=== PATIENT | male | born 1985 | race Caucasian/White ===

== ENCOUNTER 2016-10-14 10:18 | Emergency (ER) | payer OTHER ==
[2016-10-14] MEDS ORDERED: Sodium Chloride 0.9% 10 ML Syringe FLUSH PRN ×2 (11:43→12:53)
[2016-10-14] MEDS ORDERED: Sodium Chloride 0.9% 1,000 ML IV SCH (11:45)
--- NOTE | 2016-10-14 11:47 | EDM.PDOC ---
ED HPI GENERAL MEDICAL PROBLEM - General Chief Complaint: Abdominal Pain Stated Complaint: ABDOMINAL PAIN Time Seen by Provider: 10/14/16 11:12 Source of Information: Reports: Patient History Limitations: Reports: No Limitations - History of Present Illness INITIAL COMMENTS - FREE TEXT/NARRATIVE: Patient is a 31 year old male who presents to the E.D. complaining of left lower inguinal pain. Patient states he has history of bilateral open inguinal repair approximately 15+. 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 States he heard a pop and has noticed pain to the left inguinal region along incision and that his left testicle is hanging lower. Pain to abdomen is mild in nature. States he has minimal to no pain to left testicle. This occurred this past . Denies dysuria, hematuria, n/v, fever, or any additional complaints. Onset: Sudden Duration: Constant, Waxing/Waning Location: Reports: Other (left inguinal) Quality: Reports: Ache Severity: Mild Improves with: Reports: None Worsens with: Reports: Other (palpation) Context: Reports: Activity Associated Symptoms: Reports: No Other Symptoms Treatments [employer]: Reports: Other (see below) (none stated) Lower Abdomen Pain Score (Numeric/FACES): 2 - Related Data Allergies Allergy/AdvReac Type Severity Reaction Status Date / Time No Known Allergies Allergy Verified 10/14/16 11:07 Home Meds: Home Meds . [No Known Home Meds] 10/14/16 [History] Past Medical History - Past Health History Medical/Surgical History: Denies Medical/Surgical History - Past Surgical History GI Surgical History: Reports: Hernia Repair/Other Social & Family History - Tobacco Use Smoking Status *Q: Current Every Day Smoker Years of Tobacco use: 15 Packs/Tins Daily: 0.5 Used Tobacco, but Quit: No Month Tobacco Last Used: November Second Hand Smoke Exposure: No - Caffeine Use Caffeine Use: Reports: Soda - Alcohol Use Days Per Week of Alcohol Use: 0 Number of Drinks Per Day: 1 Total Drinks Per Week: 0 - Recreational Drug Use Recreational Drug Use: No ED ROS GENERAL - Review of Systems Review Of Systems: See Below Constitutional: Reports: No Symptoms Respiratory: Reports: No Symptoms Cardiovascular: Reports: No Symptoms GI/Abdominal: Reports: Abdominal Pain (left inguinal region). Denies: Black Stool, Bloody Stool, Decreased Appetite, Hematemesis, Melena, Nausea, Vomiting : Denies: Dysuria, Flank Pain, Frequency, Hematuria, Urinary Retention Musculoskeletal: Reports: No Symptoms ED EXAM, RENAL/ - Physical Exam Exam: See Below Exam Limited By: No Limitations General Appearance: Alert, WD/WN, No Apparent Distress Eye Exam: Bilateral Eye: PERRL Ears: Hearing Grossly Normal Nose: Normal Inspection Throat/Mouth: Normal Voice, No Airway Compromise Neck: Normal Inspection, Supple Respiratory/Chest: No Respiratory Distress, Lungs Clear, Normal Breath Sounds Cardiovascular: Normal Peripheral Pulses, Regular Rate, Rhythm, No Murmur GI/Abdominal: Normal Bowel Sounds, Soft, No Organomegaly, No Distention, Tender (mild tenderness in the left inguinal region. surgical incisions to the inguinal region bilaterally status post open hernia repair with mesh. No direct hernia present bilaterally) (Male) Exam: No Hernia, Circumcised, Other (left testicle pain approximately 1.5 inches lower than the right.). No: Cremasteric Reflex (bilaterally), Scrotal Swelling, Scrotum Tenderness (L), Scrotum Tenderness (R), Suprapubic Fullness, Testicular Mass, Testicular Tenderness (L), Testicular Tenderness (R) Rectal (Males) Exam: Deferred Back Exam: Normal Inspection Neurological: Alert, Oriented, Normal Cognition, No Motor/Sensory Deficits Psychiatric: Normal Affect, Normal Mood Skin Exam: Warm, Dry, Intact, Normal Color Course - Vital Signs Last Recorded V/S: Last Vital Signs Temp 97.7 F 10/14/16 11:03 Pulse 84 10/14/16 15:27 Resp 18 10/14/16 15:27 BP 130/82 10/14/16 15:27 Pulse Ox 98 10/14/16 15:27 - Orders/Labs/Meds Orders: Active Orders 24 hr Category Date Time Status Peripheral IV Care [RC] . DIRECTED Care 10/14/16 11:43 Active Abdomen Pelvis w Cont [CT] Stat Exams 10/14/16 11:42 Taken Peripheral IV Insertion Adult [OM.PC] Stat Oth 10/14/16 11:43 Ordered Labs: Laboratory Tests 10/14/16 10/14/16 10/14/16 Range/Units 11:15 11:15 13:20 WBC 6.17 (4.23-9.07) K/mm3 RBC 5.92 (4.63-6.08) M/mm3 Hgb 16.7 (13.7-17.5) gm/L Hct 47.5 (40.1-51.0) % MCV 80.2 (79.0-92.2) fl MCH 28.2 (25.7-32.2) pg MCHC 35.2 (32.2-35.5) g/dl RDW Std Deviation 42.7 (35.1-43.9) fL Plt Count 310 (163-337) K/mm3 MPV 10.7 (9.4-12.3) fl Neut % (Auto) 54.6 (34.0-67.9) % Lymph % (Auto) 33.2 (21.8-53.1) % [place] % (Auto) 8.3 (5.3-12.2) % Eos % (Auto) 2.9 (0.8-7.0) Baso % (Auto) 1.0 (0.1-1.2) % Neut # (Auto) 3.37 (1.78-5.38) K/mm3 Lymph # (Auto) 2.05 (1.32-3.57) K/mm3 [place] # (Auto) 0.51 (0.30-0.82) K/mm3 Eos # (Auto) 0.18 (0.04-0.54) K/mm3 Baso # (Auto) 0.06 (0.01-0.08) K/mm3 Sodium 141 (136-145) mEq/L Potassium 4.1 (3.5-5.1) mEq/L Chloride 104 (98-107) mEq/L Carbon Dioxide 28 (21-32) mEq/L Anion Gap 13.1 (5-15) BUN 11 (7-18) mg/dL Creatinine 0.9 (0.7-1.3) mg/dL Est Cr Clr Drug Dosing 118.92 mL/min Estimated GFR (MDRD) > 60 (>60) mL/min BUN/Creatinine Ratio 12.2 L (14-18) Glucose 102 (74-106) mg/dL Calcium 9.3 (8.5-10.1) mg/dL Total Bilirubin 0.4 (0.2-1.0) mg/dL AST 22 (15-37) U/L ALT 53 (16-63) U/L Alkaline Phosphatase 94 (46-116) U/L C-Reactive Protein 0.5 (<1.0) mg/dL Total Protein 8.0 (6.4-8.2) g/dl Albumin 4.3 (3.4-5.0) g/dl Globulin 3.7 gm/dL Albumin/Globulin Ratio 1.2 (1-2) Urine Color Light yellow (Yellow) Urine Appearance Clear (Clear) Urine pH 6.5 (5.0-8.0) Ur Specific [place] 1.010 (1.005-1.030) Urine Protein Negative (Negative) Urine Glucose (UA) Negative (Negative) Urine Ketones Negative (Negative) Urine Occult Blood Negative (Negative) Urine Nitrite Negative (Negative) Urine Bilirubin Negative (Negative) Urine Urobilinogen 0.2 (0.2-1.0) Ur Leukocyte Esterase Negative (Negative) Urine RBC Not seen (0-5) /hpf Urine WBC 0-5 (0-5) /hpf Ur Epithelial Cells Not Reportable Ur Squamous Epith Cells 0-5 (0-5) /hpf Urine Bacteria Not seen (FEW) /hpf Urine Mucus Not seen (FEW) /hpf Meds: Medications Discontinued Medications Generic Name Dose Route Start Last Admin Trade Name Freq PRN Reason Stop Dose Admin Diatrizoate Meglum/Diatrizoate Sod 90 ml 10/14/16 12:53 10/14/16 13:16 Gastrografin 37% PO 10/14/16 12:54 90 ml ONETIME ONE Administration Sodium Chloride 1,000 mls @ 150 mls/hr 10/14/16 11:45 10/14/16 11:55 Normal Saline IV 150 mls/hr ASDIRECTED CAROL Administration Iopamidol 125 ml 10/14/16 12:53 10/14/16 13:16 Isovue-300 (61%) IVPUSH 10/14/16 12:54 125 ml ONETIME ONE Administration Sodium Chloride 10 ml 10/14/16 11:43 10/14/16 11:56 Saline Flush FLUSH 10 ml ASDIRECTED PRN Administration Keep Vein Open Sodium Chloride 10 ml 10/14/16 12:53 10/14/16 13:16 Saline Flush FLUSH 10 ml ONETIME PRN Administration IV FLUSH - Re-Assessments/Exams Free Text/Narrative Re-Assessment/Exam: Ordered a peripheral IV with normal saline 150 mL per hour. Initial labs and studies include CBC, chem 14, CRP, UA, CT abdomen and pelvis with oral and IV contrast. 10/14/16 12:50 Labs reviewed essentially normal. 10/14/16 13:49 UA was negative. No concerning findings. Awaiting results of CT abdomen. 10/14/16 14:[address] abdomen and pelvis were delayed. Report provided by [facility]. CT abdomen and pelvis findings: No acute findings. 10/14/16 15:13 Discussed results of labs and CT with patient. Offered to have ultrasound of the scrotum obtained today. He has opted to have this performed on a outpatient basis. Pain is mild 06/06. Will discharge patient home with instructions. Departure - Departure Time of Disposition: 15:14 Disposition: Home, Self-Care 01 Condition: good Clinical Impression: Testicular pain, left, Abdominal pain in male - Discharge Information Instructions: Abdominal Pain, Adult, [id number] Referrals: PCP,None [Primary Care Provider] - Bear Donato [Physician] - Forms: ED Department Discharge Additional Instructions: Labs and CT study did not elicit any acute findings. Thus etiology of left abdominal pain and testicular discomfort is unclear at this time. We'll have you obtain a ultrasound of the scrotum contents this coming Sunday. They will call you with appointment time. For discomfort take tylenol and ibuprofen in alternating fashion. Suggest wearing underwear that is able to support your scrotum this helping with decreasing the pain. Make an appointment with Dr. Donato at [facility] for this coming week to discuss results. Return back to the ED if you experience worsening pain, fever/chills, pain with urination, nausea/vomiting, or any additional new or worsening symptoms. - My Orders Last 24 Hours: My Active Orders 10/14/16 11:42 Abdomen Pelvis w Cont [CT] Stat 10/14/16 11:43 Peripheral IV Care [RC] . DIRECTED Peripheral IV Insertion Adult [OM.PC] Stat - Assessment/Plan Last 24 Hours: My Active Orders 10/14/16 11:42 Abdomen Pelvis w Cont [CT] Stat 10/14/16 11:43 Peripheral IV Care [RC] . DIRECTED Peripheral IV Insertion Adult [OM.PC] Stat
[2016-10-14] MEDS ORDERED: Iopamidol 612 MG/ML 150 ML Bottle IVPUSH ONE (12:53)
[2016-10-14] MEDS ORDERED: Diatrizoate Meglumine/Diatrizoate Sodium 37% 120 ML Bottle PO ONE (12:53)
[2016-10-14 15:29] VITALS: BP 130/82
--- NOTE | 2016-10-16 07:37 | CT ---
CT abdomen and pelvis Technique: Multiple axial sections were obtained from above the dome of the diaphragm inferiorly through the pubic symphysis. Intravenous and oral contrast was utilized. Delayed images were obtained through the bladder. Comparison: Previous abdominal and pelvic CT exam of 01/11/10 is available. Findings: Visualized lung bases are clear. Liver shows mild fatty infiltration. Spleen appears within normal limits. Adrenal glands show no nodule. Pancreas is within normal limits. Kidneys show symmetric contrast enhancement without hydronephrosis or mass. Left kidney showed a cyst on previous exam and this cyst now measures approximately 9 mm. No additional finding is seen within the kidneys. Gallbladder shows no calcified gallstones. Aorta has no aneurysmal dilatation. Appendix is seen which appears normal. No retroperitoneal adenopathy or mesenteric abnormalities are seen. No pelvic mass or adenopathy is seen. Delayed images show contrast within the distal ureters and within the bladder. No inflammatory change is seen. No bowel dilatation is seen. No free fluid is identified. Bone window settings were reviewed which appear within normal limits for the patient's age. Impression: 1. Small cyst within the left kidney which has diminished in size from prior CT exam. 2. Fatty infiltration within the liver. 3. Nothing acute is identified on CT study of the abdomen and pelvis. Diagnostic code #2 I agree with preliminary report issued by [facility] (report finalized on 10/14/16, 3:42 PM Central Time)
== END 2016-10-14 15:20 | disposition home or self-care (01) ==
LOC: JD.ED 10:18
DX: N50.812 Left testicular pain (principal); R10.32 Left lower quadrant pain; F17.210 Nicotine dependence, cigarettes, uncomplicated
CPT/HCPCS: 36415; 74177; 80053; 81001; 85025; 86140; 96360; 96361; 99284; J7040; J7050; Q9963; Q9967; 99283